=== PATIENT | male | born 1985 | race African-American/Black ===

== ENCOUNTER 2020-11-15 20:58 | Emergency (ER) | payer OTHER ==
[~2020-11-15] VITALS: Ht 188 cm; Wt 102.3 kg
[2020-11-15 21:00] VITALS: BP 154/86
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
[2020-11-15] MEDS ORDERED: CEPHALEXIN 250 MG CAPSULE PO ONE (22:15)
== END 2020-11-15 22:25 ==
LOC: EEVIPCON 20:58 → ER 20:58 → EDBD 20:58 → ER 22:25
DX: S01.01XA Laceration without foreign body of scalp, initial encounter (principal); W22.8XXA Striking against or struck by other objects, initial encounter; Y93.89 Activity, other specified; Y92.89 Other specified places as the place of occurrence of the external cause; Y99.8 Other external cause status
CPT/HCPCS: 12001; 99283-25